=== PATIENT | male | born 1985 | race Caucasian/White ===

== ENCOUNTER 2018-04-27 23:05 | Emergency (ER) | payer SELFPAY ==
[2018-04-27 23:17] VITALS: O2SAT 99
--- NOTE | 2018-04-27 23:48 | ED PDOC ---
HPI: Allergic Reaction Time Seen by Provider: 04/27/18 23:26 Chief Complaint (Nursing): Allergic Reaction Chief Complaint (Provider): allergic reaction History Per: Patient History/Exam Limitations: no limitations Onset/Duration Of Symptoms: Hrs (2) Current Symptoms Are (Timing): Better Context: Food Associated Symptoms: Swelling, Dizziness Home/EMS Treatment: Benadryl Additional Complaint(s): 32 y/o male presents for evaluation of allergic reaction x 2 hours. Patient states he ate a bag of cashews then noticed they contained sunflower oil in them, of which he has had a reaction to sunflower seeds in past. Patient states within minutes he noticed his face to swell up and felt short of breath. Patient states he then induced vomiting and took 75mg of Benadryl. Patient states afterwards he started to feel dizzy so decided to come to ED for eval. Patient reports improvement of symptoms since arrival to ED. Denies rash, difficulty speaking/swallowing, chest pain, shortness of breath, palpitations, nausea/vomiting, abdominal pain. Past Medical History Reviewed: Historical Data, Nursing Documentation, Vital Signs Vital Signs: Last Vital Signs Temp 98.2 F 04/27/18 23:12 Pulse 82 04/27/18 23:12 Resp 18 04/27/18 23:12 BP 138/92 H 04/27/18 23:12 Pulse Ox 99 04/27/18 23:12 - Medical History PMH: No Chronic Diseases - Surgical History Surgical History: No Surg Hx - Family History Family History: States: No Known Family Hx - Home Medications Home Medications: Ambulatory Orders Medication Instructions Recorded Cetirizine HCl [Zyrtec] 10 mg PO DAILY #5 capsule 04/28/18 Famotidine [Pepcid] 20 mg PO BID #8 tab 04/28/18 Prednisone 50 mg PO DAILY #4 tablet 04/28/18 - Allergies Allergies/Adverse Reactions: Allergies Allergy/AdvReac Type Severity Reaction Status Date / Time cephalexin [From Keflex] Allergy ANAPHYLAXIS Verified 04/27/18 23:10 sunflower seed Allergy ANAPHYLAXIS Verified 04/27/18 23:10 Review of Systems ROS Statement: Except As Marked, All Systems Reviewed And Found Negative Skin: Positive for: Other (swelling to face) Physical Exam - Reviewed Nursing Documentation Reviewed: Yes Vital Signs Reviewed: Yes - Physical Exam Appears: Positive for: Well, Non-toxic, No Acute Distress Head Exam: Positive for: ATRAUMATIC, NORMAL INSPECTION, NORMOCEPHALIC Skin: Positive for: Rash (mild edema to cheeks noted) Eye Exam: Positive for: Normal appearance ENT: Positive for: Normal ENT Inspection Cardiovascular/Chest: Positive for: Regular Rate, Rhythm Respiratory: Positive for: Normal Breath Sounds Gastrointestinal/Abdominal: Positive for: Normal Exam Back: Positive for: Normal Inspection Extremity: Positive for: Normal ROM Neurologic/Psych: Positive for: Alert, Oriented (x3) - ECG O2 Sat by Pulse Oximetry: 99 - Progress ED Course And Treament: IV solumedrol IV pepcid On re-eval, patient states he is feeling better. Swelling improved Patient educated on findings, discharged with rx Prednisone, Pepcid, Zyrtec Advised follow up with Elevator Supervisor Return precautions given Disposition - Clinical Impression Clinical Impression: Allergic reaction - Patient ED Disposition Is Patient to be Admitted: No Counseled Patient/Family Regarding: Diagnosis, Need For Followup, Rx Given - Disposition Referrals: Stephan Mckay MD [Staff Provider] - [facility] [Outside] Disposition: Routine/Home Disposition Time: 01:04 Condition: IMPROVED Prescriptions: Cetirizine HCl [Zyrtec] 10 mg PO DAILY #5 capsule Famotidine [Pepcid] 20 mg PO BID #8 tab Prednisone 50 mg PO DAILY #4 tablet Instructions: Food Allergy Forms: [facility] ([place])
[2018-04-28 01:28] VITALS: BP 138/85; PULSE 74; RESP 17; TEMP 98.4
== END 2018-04-28 01:03 | disposition home or self-care (01) ==
LOC: H.ER 23:05
DX: T78.1XXA Other adverse food reactions, not elsewhere classified, initial encounter (principal)
CPT/HCPCS: 96374; 96375; J2930